=== PATIENT | male | born 1975 ===

== ENCOUNTER 2018-08-08 08:26 | Outpatient (REF) | payer MEDICAID, SELFPAY ==
[2018-08-08 20:54] LABS: Microalb ug/mg Crea 11.4 ug/mg Cr
== END 2018-08-08 08:46 ==
LOC: NCHCN 08:26
PROVIDERS: PCP Nurse Practitioner Family; Visit Provider Nurse Practitioner Family
DX: E11.9 Type 2 diabetes mellitus without complications (principal); I10 Essential (primary) hypertension
CPT/HCPCS: 82043; 82570